=== PATIENT | male | born 1980 | race Caucasian/White ===

== ENCOUNTER 2017-07-23 21:01 | Emergency (ER) | payer OTHER ==
[~2017-07-23] VITALS: Ht 182.9 cm; Wt 90.7 kg
[2017-07-23] MEDS ORDERED: JANUVIA25 MG PO (21:18)
[2017-07-23] MEDS ORDERED: GENVOYA TABLET1 EACH PO (21:36)
[2017-07-23] MEDS ORDERED: KEFLEX500 M1 PO (22:09)
[2017-07-23 22:20] VITALS: BP 150/84
== END 2017-07-23 22:20 | disposition home or self-care (01) ==
LOC: M.ERS 21:01
DX: S91.311A Laceration without foreign body, right foot, initial encounter (principal); F17.200 Nicotine dependence, unspecified, uncomplicated; Z21 Asymptomatic human immunodeficiency virus [HIV] infection status; W22.8XXA Striking against or struck by other objects, initial encounter; Y93.89 Activity, other specified; Y92.89 Other specified places as the place of occurrence of the external cause; Y99.8 Other external cause status